=== PATIENT | female | born 1965 | race Caucasian/White ===

== ENCOUNTER → 2025-03-04 | Outpatient (CLI) | payer OTHER, SELFPAY ==
--- NOTE | 2025-03-04 16:15 | XR_ITS ---
Examination: Transvaginal ultrasound of the pelvis, complete Technique: Transvaginal sonographic images pelvis performed using joaquin scale imaging Exam date and time: March 04, 2025 1615 hrs. Indications: Postmenopausal bleeding beginning 9 weeks ago Findings: Uterus 8.0 cm endometrial stripe 1.4 cm Uterine fundal series of fibroid degeneration 18 x 22 mm, 21 x 19 mm Right ovary 2.0 cm arterial flow Left ovary 2.3 cm arterial flow Impression: Uterine areas of fibroid degeneration Abnormal thickening of the endometrial stripe 1.4 cm, differential would include endometrial hyperplasia, malignant neoplasm of the endometrium, recommend MRI pelvis follow-up pre and postcontrast
== END | disposition home or self-care (01) ==
PROVIDERS: PCP Nurse Practitioner Family; Referring Provider Obstetrics & Gynecology; Visit Provider Obstetrics & Gynecology
DX: D25.9 Leiomyoma of uterus, unspecified (principal); R93.89 Abnormal findings on diagnostic imaging of other specified body structures
CPT/HCPCS: 76830

== ENCOUNTER 2025-03-13 13:09 | Outpatient (AMB) | payer OTHER, SELFPAY ==
--- NOTE | 2025-03-13 13:31 | AMB.GYNCLNOT ---
Vital Signs 03/13/25 13:35 Height 1.57 m Height Method Stated Weight 60.951 kg Weight Measurement Method Standing Scale BMI 24.7 BP 124/81 Blood Pressure Source Automatic Cuff Blood Pressure Location Left Upper Arm Position Sitting Respiration 18 Pulse 92 Pulse Source Monitor Temp 97.8 F Temp Source Oral Pulse Oximetry (%) 97 Oxygen Delivery Method Room Air Allergies/Home Meds Allergies & Medications Allergies No Known Allergies Allergy (Verified 03/13/25 13:42) Medication Reconciliation estradiol 10 mcg vaginal insert, in a starter dose pack (Imvexxy Starter Pack) See Rx Instructions vaginal .COMPLEX #18 ea 02/18/25 [Rx Confirmed 03/13/25] Intake Visit Data Collection New Patient or Established: Established Patient (seen at [facility] within 3 years) Reason for Visit:: U/S RESULTS Seen by Clinical Staff ONLY (RN/MA): No Merit System Director Required: No Do You Feel Safe at Home: Yes Authorities Contacted: N/A PCP or OBGYN visit in last 3 months: Yes Hx Now: No Are you currently on any form of Control: No Pain Present Currently: No Pain Scale Used: Riggins-Smith/Numerical Pain scale:: 0 Smoking Status Smoking Status: Never smoker 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 1. Little interest or pleasure in doing things: not at all 2. Feeling down, depressed, or hopeless: not at all Total score: 0 PHQ-9 3. Trouble falling or staying asleep, or sleeping too much: Not at all 4. Feeling tired or having little energy: Not at all 5. Poor appetite or overeating: Not at all 6. Feeling bad about yourself - or that you are a failure or have let yourself or your family down: Not at all 7. Trouble concentrating on things, such as reading the newspaper or watching television: Not at all 8. Moving or speaking so slowly that other people could have noticed? - Or the opposite - being so fidgety or restless that you have been moving around a lot more than usual: not at all 9. Thoughts that you would be better off or of hurting yourself in some way: Not at all Total score: 0 Source: Developed by Drs. Chris Mckeon, Reema Mcguire, Huseyin Chaparro and colleagues, with an educational lisy from [employer] 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 Tobacco History Smoking Status: Never smoker Alcohol History Alcohol Intake: Current Alcohol Intake Frequency: holidays/special occasions only Domestic Abuse History Do You Feel Safe at Home: Yes Past Medical History Past Medical History Have you ever been diagnosed with any of the following: Neurological Problems Seizures: No Migraine: Yes (Takes Maxalt as needed) Cardiology Problems Cardiac Arrhythmia: No Heart Murmur: No Hypercholesterolemia: No Hypertension: No Respiratory Problems Asthma: No Sleep Apnea: No Stomache/Intestinal Problems Gall Bladder Disease: No Diverticulitis: No Diverticulosis: No Irritable Bowel: No Gastroesophageal Reflux Disease: No Genital/Urinary Problems Renal Disease: No Kidney Stones: No Reproductive Problems Breast Cancer: No Endometriosis: No Fibroids: No Genital Herpes: No Gonorrhea: No Pelvic Inflammatory Disease: No Polycystic Ovarian Syndrome: No Previous Pregnancies: Yes ( x 1 in the past, SAB x 1 in the past) Syphilis: No Uterine Prolapse: No Musculoskeletal Problems Arthritis: No Rheumatoid Arthritis: No Osteoporosis: No Head,Eye,Nose,Throat Problems Glaucoma: No Endocrine Problems Hyperthyroidism: No Hypothyroidism: No Systemic Lupus Erythematosus: No Blood Problems Anemia: No Psychologic Problems Anxiety: Yes (Has a prescription for Xanax she takes as needed) Other Problems Hospitalization: Yes (For x 1) Cosmetic Surgery: Yes (Breast implants [address] Sabillon) Anesthesia Reactions: No Chicken Pox: Yes (History of chickenpox\shingles) Surgical History Appendectomy: No Bariatric Surgery: No Breast Surgery: Yes (Breast implants) Cholecystectomy: No History of Present Illness HPI Narrative The patient is a 60-year-old -0-1-1 who is having postmenopausal bleeding. We did order an ultrasound. Patient presents today for follow-up. She was on hormonal pellets in the past. She had a normal Pap and pelvic exam performed 02/19/2024. She denies any pain. She says the bleeding could be light or heavy. Not a lot of cramping. She also is having trouble getting her Imvexxy filled. Results Objective Imaging: The Ultrasound report from 03/04/25 was reviewed today revealing a thickened stripe of 1.4 cm and 2 small fibroids present measuring 2.2 x 1.8 cm and 2.1 x 1.9 cm. Assessment & Plan Diagnosis / Problem List (1) Abnormal vaginal bleeding in postmenopausal patient: Status: Acute Assessment and Plan: Patient has thickened endometrial stripe. Will schedule hysteroscopy dilation curettage to rule out endometrial cancer. (2) Post-menopausal atrophic vaginitis: Status: Acute Assessment and Plan: Patient would like Imvexxy called into a different pharmacy will try [facility] on [address] (3) Thickened endometrium: Status: Acute Assessment and Plan: For hysteroscopy D&C will authorize. Office Procedures OB Clinic LOC & Office Proc's Nursing/Assessment Patient Status: Established Patient OB Clinic Nursing Assessment: Medication Reconciliation, Update PMH in EMR and Vital Signs OB Clinic Coordination of Care: Complex Care and Chronic Disease 1-5, Consent,records obtained, informed consent, Education Simp Pt/Fam, Results/Orders obtained and Staff clarify orders Established Patient Charge Established Patient Point Assignment: 90 Established Patient Point Charge: EP Level 3 (80-115)
[2025-03-13 13:35] VITALS: BP 124/81; PULSE 92; RESP 18; TEMP 36.6; O2SAT 97; BMI 24.7
== END 2025-03-13 14:16 | disposition home or self-care (01) ==
LOC: HODSOBC 13:09
PROVIDERS: PCP Nurse Practitioner Family; Referring Provider Nurse Practitioner Family; Supervising Provider Obstetrics & Gynecology; Visit Provider Obstetrics & Gynecology
DX: N95.0 Postmenopausal bleeding (principal); N95.2 Postmenopausal atrophic vaginitis; R93.89 Abnormal findings on diagnostic imaging of other specified body structures
CPT/HCPCS: 99213; G0463

== ENCOUNTER 2025-07-15 13:27 | Outpatient (AMB) | payer BC, SELFPAY ==
[2025-07-15 13:38] VITALS: BP 130/86; PULSE 80; RESP 16; TEMP 36.7; O2SAT 95; BMI 24.1
--- NOTE | 2025-07-15 13:38 | GYNCLNT_ITS ---
Vital Signs 07/15/25 13:38 Height 1.57 m Height Method Stated Weight 59.477 kg Weight Measurement Method Standing Scale BMI 24.1 BP 130/86 H Blood Pressure Source Automatic Cuff Blood Pressure Location Left Upper Arm Position Sitting Respiration 16 Pulse 80 Pulse Source Monitor Temp 98.1 F Temp Source Oral Pulse Oximetry (%) 95 Oxygen Delivery Method Room Air Allergies/Home Meds Allergies & Medications Allergies No Known Allergies Allergy (Verified 07/15/25 13:39) Medication Reconciliation estradiol 10 mcg vaginal insert, in a starter dose pack (Imvexxy Starter Pack) See Rx Instructions vaginal .COMPLEX #18 ea 02/18/25 [Rx Confirmed 07/15/25] estradiol 10 mcg vaginal insert (Imvexxy Maintenance Pack) See Rx Instructions .Route .COMPLEX #8 inserts 04/27/25 [Rx Confirmed 07/15/25] Intake Visit Data Collection New Patient or Established: Established Patient (seen at [facility] within 3 years) Reason for Visit:: POST MENOPAUSAL BLEEDING FOLLOW UO Seen by Clinical Staff ONLY (RN/MA): No Strickler Attendant Required: No Do You Feel Safe at Home: Yes Authorities Contacted: N/A PCP or OBGYN visit in last 3 months: Yes Hx Now: No Are you currently on any form of Control: No Pain Present Currently: No Pain Scale Used: Riggins-Smith/Numerical Pain scale:: 0 Smoking Status Smoking Status: Never smoker Anesthesiology Medical Doctor history Anesthesiology Medical Doctor History Menopausal: Yes If menopausal, at what age did it occur: 57 Currently sexually 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 1. Little interest or pleasure in doing things: not at all 2. Feeling down, depressed, or hopeless: not at all Total score: 0 PHQ-9 3. Trouble falling or staying asleep, or sleeping too much: Not at all 4. Feeling tired or having little energy: Not at all 5. Poor appetite or overeating: Not at all 6. Feeling bad about yourself - or that you are a failure or have let yourself or your family down: Not at all 7. Trouble concentrating on things, such as reading the newspaper or watching television: Not at all 8. Moving or speaking so slowly that other people could have noticed? - Or the opposite - being so fidgety or restless that you have been moving around a lot more than usual: not at all 9. Thoughts that you would be better off or of hurting yourself in some way: Not at all Total score: 0 Source: Developed by Drs. Chris Mckeon, Reema Mcguire, Huseyin Chaparro and colleagues, with an educational lisy from [employer]. 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 Tobacco History Smoking Status: Never smoker Second Hand Smoke Exposure: No Alcohol History Alcohol Intake: Current Alcohol Intake Frequency: holidays/special occasions only Domestic Abuse History Do You Feel Safe at Home: Yes History of Present Illness HPI Narrative The patient is a 60-year-old -0-1-1 who presents for follow-up. She was on hormone pellets and discontinued these about 6 to 7 months ago. She has been having postmenopausal bleeding. An ultrasound revealed a stripe of 1.4 cm and 2 small fibroids each were measuring about 2 x 2 cm. The plan was for a hysteroscopy dilation curettage and may be a MyoSure. Patient is amendable to trying an IUD in the office if she continues to have postmenopausal bleeding. Her Pap was reviewed and normal. Patient states she is going to [place] August 02 to see her son otherwise she is available. She recently retired. We did discuss the procedure and that she would probably be asleep about 20 minutes. I verbally consented her for the case including the risk of bleeding, infection, blood transfusion and damage to bowel bladder blood vessels and other organs and further surgery should uterine perforation or other complications occur. Patient was asking about an ablation and states one of her friends had an ablation in her mid 50s. I told the patient as far as I know this is not indicated for postmenopausal patients. If she continues to bleed I would recommend a Mirena IUD which can be placed in the office. If that is not possible, I would recommend a hysterectomy. Review of Systems Review of Systems Narrative Review of Systems: Patient reports passing stringy pieces of tissue vaginally that look like liver Exam Narrative Physical exam: The remainder physical exam deferred as this is a counseling visit. General Limitations: no limitations General Appearance: alert, in no apparent distress, cooperative, healthy appearing and well groomed Office Procedures OB Clinic LOC & Office Proc's Nursing/Assessment Patient Status: Established Patient OB Clinic Nursing Assessment: Medication Reconciliation, Update PMH in EMR and Vital Signs OB Clinic Coordination of Care: Complex Care and Chronic Disease 1-5, Consent,records obtained, informed consent, Education Simp Pt/Fam, Lab and I maging orders, Results/Orders obtained and Staff clarify orders Established Patient Charge Established Patient Point Assignment: 105 Established Patient Point Charge: EP Level 3 (80-115) Assessment & Plan Diagnosis / Problem List (1) Thickened endometrium: Status: Acute Plan: Patient having postmenopausal bleeding with thickened endometrium. Ultrasound reveals small fibroids. The plan is for a hysteroscopy, dilation, curettage, possible MyoSure in the OR. Patient has been verbally consented. Will authorize insurance and schedule this case. (2) Abnormal vaginal bleeding in postmenopausal patient: Status: Acute (3) Postmenopausal postcoital bleeding: Status: Acute (4) Intramural uterine fibroid: Status: Acute
== END 2025-07-15 14:02 | disposition home or self-care (01) ==
LOC: HODSOBC 13:27
PROVIDERS: Supervising Provider Obstetrics & Gynecology; Visit Provider Obstetrics & Gynecology
DX: D25.1 Intramural leiomyoma of uterus (principal); N95.0 Postmenopausal bleeding; R93.89 Abnormal findings on diagnostic imaging of other specified body structures
CPT/HCPCS: 99213; G0463

== ENCOUNTER → 2025-09-09 | Outpatient (CLI) | payer BC, SELFPAY ==
[2025-09-09 10:14] LABS: Collection Type, Urine Clean Catch
[2025-09-09 10:55] LABS: Basophils # (Auto) 0.0 Thou/mm3 (0.0-0.2); Basophils % (Auto) 1 % (0-2.5); Eosinophils # (Auto) 0.1 Thou/mm3 (0.0-0.5); Eosinophils % (Auto) 3 % (0-10); Hematocrit 43.4 % (36.0-46.0); Hemoglobin 14.2 g/dL (12.0-16.0); Immature Granulocytes Auto 0.01 Thou/mm3 (0.00-0.00); Lymphocytes # (Auto) 1.7 Thou/mm3 (1.0-4.8); Lymphocytes % (Auto) 40 % (10-50); Mean Corpuscular HGB Conc 32.7 g/dl (31.0-37.0); Mean Corpuscular Hemoglobin 31.1 pg (25.0-35.0); Mean Corpuscular Volume 95 fL (80-100); Monocytes # (Auto) 0.4 Thou/mm3 (0.0-0.8); Monocytes % (Auto) 10 % (0-12); Neutrophils # (Auto) 2.0 Thou/mm3 (1.8-7.7); Neutrophils % (Auto) 46 % (37-80); Nucleated Red Blood Cell # 0.00 Thou/mm3 (0.00-0.00); Nucleated Red Blood Cell % 0 /100 WBC (0); Platelet Count 284 Thou/mm3 (140-440); RDW Standard Deviation 48.8 fL (36.4-46.3); Red Blood Count 4.57 Miln/mm3 (4.00-5.20); White Blood Count 4.3 Thou/mm3 (3.6-11.0)
[2025-09-09 11:03] LABS: Alanine Aminotransferase 15 U/L (10-49); Albumin, Serum 4.7 gm/dL (3.5-5.0); Albumin/Globulin Ratio 1.8 (1.2-2.2); Alkaline Phosphatase 57 U/L (46-116); Anion Gap 11 (7-16); Aspartate Amino Transferase 25 U/L (0-34); BUN/Creatinine Ratio 20 Ratio (12-20); Bilirubin,Total 0.4 mg/dL (0.3-1.2); Blood Urea Nitrogen 16 mg/dL (9-23); Calcium 10.5 mg/dL (8.3-10.6); Calcium (Corrected) 10.5 mg/dL (8.5-10.1); Carbon Dioxide 28.3 mMol/L (20.0-31.0); Cardiac Risk Estimate 2.1 RATIO (3.7-5.6); Chloride 104 mMol/L (98-107); Cholesterol 237 mg/dL (132-200); Creatinine (Component) 0.8 mg/dL (0.6-1.3); Globulin 2.6 gm/dL (2.3-3.5); Glucose 87 mg/dL (74-106); HDL Cholesterol 113 mg/dL (40-60); LDL Cholesterol,Calculated 113 mg/dL (0-130); Osmolality,Calculated 285 (275-295); Potassium 4.3 mMol/L (3.4-5.1); Sodium 143 mMol/L (136-145); Thyroid Stimulating Hormone 1.82 uIU/mL (0.55-4.78); Total Protein 7.3 gm/dL (5.7-8.2); Triglycerides 55 mg/dL (30-150); eGFR > 60 See Note
[2025-09-09 11:04] LABS: Vitamin D 25 Hydroxy Total 39.1 ng/mL (7.3-40.2)
[2025-09-09 11:14] LABS: Bilirubin,Urine Negative (Negative); Blood,Urine Negative (Negative); Clarity,Urine Clear (Clear/Hazy); Color,Urine Lt-Yellow (Lt Yel-Yel); Culture Indicated,Urine Not Indicated; Glucose, Urine Negative (Negative); Ketones,Urine Trace (Negative); Leukocyte Esterase,Urine Negative (Negative); Nitrite,Urine Negative (Negative); PH,Urine 5.5 (5.0-7.0); Protein,Urine Negative (Neg - Trace); RBC,Urine 4 /hpf (0-3); Specific Gravity,Urine 1.022 (1.001-1.035); Squamous Epithelial Cell,Urine < 1 /hpf (0-5); Urobilinogen,Urine Negative mg/dL (0.0-1.0); WBC,Urine 1 /hpf (0-5)
[2025-09-14 06:39] LABS: Thyroid Peroxidase Antibodies* 1 IU/mL (<9)
== END | disposition home or self-care (01) ==
PROVIDERS: PCP Nurse Practitioner Family; Referring Provider Nurse Practitioner Family; Visit Provider Nurse Practitioner Family
DX: Z00.00 Encounter for general adult medical examination without abnormal findings (principal); E55.9 Vitamin D deficiency, unspecified; N39.0 Urinary tract infection, site not specified; E03.9 Hypothyroidism, unspecified; R10.9 Unspecified abdominal pain; Z79.899 Other long term (current) drug therapy; Z13.29 Encounter for screening for other suspected endocrine disorder; Z13.1 Encounter for screening for diabetes mellitus; Z13.0 Encounter for screening for diseases of the blood and blood-forming organs and certain disorders involving the immune mechanism
CPT/HCPCS: 36415; 80053; 80061; 81001; 82306; 84443; 85025; 86376

== ENCOUNTER → 2025-09-14 | Outpatient (CLI) | payer BC, SELFPAY ==
[2025-09-16 06:51] LABS: Fecal Globin Result NOT DETECTED (NOT DETECTED)
== END | disposition home or self-care (01) ==
LOC: SLDO 10:54
PROVIDERS: Referring Provider Nurse Practitioner Family; Visit Provider Nurse Practitioner Family
DX: Z00.00 Encounter for general adult medical examination without abnormal findings (principal); E55.9 Vitamin D deficiency, unspecified; E03.9 Hypothyroidism, unspecified; R10.9 Unspecified abdominal pain; Z13.29 Encounter for screening for other suspected endocrine disorder; Z13.1 Encounter for screening for diabetes mellitus; Z13.0 Encounter for screening for diseases of the blood and blood-forming organs and certain disorders involving the immune mechanism
CPT/HCPCS: 82274; G0328

== ENCOUNTER 2025-09-28 08:52 | Outpatient (AMB) | payer BC, SELFPAY ==
[2025-09-28 09:07] VITALS: BP 153/84; PULSE 81; RESP 18; TEMP 36.2; O2SAT 98; BMI 24.5
--- NOTE | 2025-09-28 09:07 | AMB.GYNCLNOT ---
Vital Signs 09/28/25 09:07 Height 1.57 m Height Method Stated Weight 60.328 kg Weight Measurement Method Standing Scale BMI 24.5 BP 153/84 H Blood Pressure Source Automatic Cuff Blood Pressure Location Left Upper Arm Position Sitting Respiration 18 Pulse 81 Pulse Source Monitor Temp 97.2 F Temp Source Oral Pulse Oximetry (%) 98 Oxygen Delivery Method Room Air Allergies/Home Meds Allergies & Medications Allergies No Known Allergies Allergy (Verified 09/28/25 09:08) Medication Reconciliation estradiol 10 mcg vaginal insert, in a starter dose pack (Imvexxy Starter Pack) See Rx Instructions vaginal .COMPLEX #18 ea 02/18/25 [Rx Confirmed 09/28/25] estradiol 10 mcg vaginal insert (Imvexxy Maintenance Pack) See Rx Instructions .Route .COMPLEX #8 inserts 04/27/25 [Rx Confirmed 09/28/25] Intake Visit Data Collection New Patient or Established: Established Patient (seen at [facility] within 3 years) Reason for Visit:: PRE-OP Seen by Clinical Staff ONLY (RN/MA): No Skewer Up Required: No Do You Feel Safe at Home: Yes Authorities Contacted: N/A PCP or OBGYN visit in last 3 months: Yes Date of Last PCP or OBGYN visit: 07/15/25 Hx Now: Yes Are you currently on any form of Control: No Pain Present Currently: No Pain Scale Used: Riggins-Smith/Numerical Pain scale:: 0 Smoking Status Smoking Status: Never smoker Immunizations Flu Vaccine in the Last 12 Months: No Flu Vaccine Exclusion Criteria: No Exclusion Criteria 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 1. Little interest or pleasure in doing things: not at all 2. Feeling down, depressed, or hopeless: not at all Total score: 0 PHQ-9 3. Trouble falling or staying asleep, or sleeping too much: Not at all 4. Feeling tired or having little energy: Not at all 5. Poor appetite or overeating: Not at all 6. Feeling bad about yourself - or that you are a failure or have let yourself or your family down: Not at all 7. Trouble concentrating on things, such as reading the newspaper or watching television: Not at all 8. Moving or speaking so slowly that other people could have noticed? - Or the opposite - being so fidgety or restless that you have been moving around a lot more than usual: not at all 9. Thoughts that you would be better off or of hurting yourself in some way: Not at all Total score: 0 If you checked off any problems, how difficult have these problems made it for you to do your work, take care of things at home, or get along with other people?: not difficult at all Source: Developed by Drs. Chris Mckeon, Reema Mcguire, Huseyin Chaparro and colleagues, with an educational lisy from [employer]. 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 Tobacco History Smoking Status: Never smoker Second Hand Smoke Exposure: No Alcohol History Alcohol Intake: Current Alcohol Intake Frequency: holidays/special occasions only Domestic Abuse History Do You Feel Safe at Home: Yes History of Present Illness HPI Narrative The patient is a 60-year-old -0-1-1 presents for preop visit. She has a thickened stripe of 1.4 cm with 2 fibroids present. She is to undergo a hysteroscopy, dilation, curettage for postmenopausal bleeding. Patient was on pellets for hormone replacement therapy for 2 years 2 to 3 years. She was seeing Dr. Bell. She states that she was on estrogen and testosterone pellets and then withdrawing monthly on progesterone. She discontinued this about 8 months ago. Her main complaint is postmenopausal bleeding which she describes as dark and constant and brain fog when she gets through the surgery and has pathology back, she might want to discuss other HRT options. Of note she is nervous today and crying afraid she has uterine cancer. I tried to reassure her she most likely does not have uterine cancer but we do have to rule this out and the only good way to do it with a thickened stripe and fibroids is to perform a hysteroscopy dilation curettage in the operating room. Review of Systems Review of Systems Narrative Review of Systems: Patient reports dark brownish bleeding no fevers chills no pain. No foul discharge. Exam General Limitations: no limitations General Appearance: alert, in no apparent distress, cooperative, healthy appearing, well groomed and anxious Chest Chest inspection: Present normal inspection and symmetric chest wall rise Resp Respiratory exam: Present normal lung sounds bilaterally Card Cardiovascular exam: Present regular rate, normal rhythm and normal heart sounds Abdominal Abdominal exam: Present soft and normal bowel sounds Psych Psychiatric exam: Present normal affect and normal mood Skin Skin exam: Present warm, dry, intact and normal color Results Objective Imaging: Ultrasound from 425 reveals a thickened stripe of 1.4 cm. 2 small fibroids, one 2 x 2 cm and another 1.5 x 1 cm Office Procedures OBC Clinic LOC & Office Proc's Nursing/Assessment Patient Status: Established Patient OB Clinic Nursing Assessment: Medication Reconciliation, Update PMH in EMR and Vital Signs OB Clinic Coordination of Care: Consent,records obtained, informed consent, Education Simp Pt/Fam, Lab and Imaging orders, Results/Orders obtained and Staff clarify orders Special Needs: Heart tones Established Patient Charge Established Patient Point Assignment: 110 Established Patient Point Charge: EP Level 3 (80-115) Assessment & Plan Diagnosis / Problem List (1) Abnormal vaginal bleeding in postmenopausal patient: Status: Acute Plan: Patient is consented for a hysteroscopy, dilation, curettage for a thickened stripe and postmenopausal bleeding. Patient is consented for the procedure. The risks are discussed including the risk of bleeding, infection, blood transfusion, damage to bowel bladder blood vessels other organs and prolonged hospital stay and further surgery should any above occur. All questions were answered all consents were signed. (2) Thickened endometrium: Status: Acute Plan: For hysteroscopy, dilation, curettage for postmenopausal bleeding. (3) Intramural uterine fibroid: Status: Acute
== END 2025-09-28 10:35 | disposition home or self-care (01) ==
LOC: HODSOBC 08:52
PROVIDERS: PCP Nurse Practitioner Family; Referring Provider Nurse Practitioner Family; Supervising Provider Obstetrics & Gynecology; Visit Provider Obstetrics & Gynecology
DX: D25.1 Intramural leiomyoma of uterus (principal); N95.0 Postmenopausal bleeding; R93.89 Abnormal findings on diagnostic imaging of other specified body structures; Z79.890 Hormone replacement therapy
CPT/HCPCS: 99213; G0463

== ENCOUNTER 2025-10-21 13:22 | Outpatient (AMB) | payer BC, SELFPAY ==
[2025-10-21 13:44] VITALS: BP 129/79; PULSE 82; RESP 18; TEMP 36.3; O2SAT 96; BMI 24.8
--- NOTE | 2025-10-21 13:44 | GYNCLNT_ITS ---
Vital Signs 10/21/25 13:44 Height 1.55 m Height Method Stated Weight 59.647 kg Weight Measurement Method Standing Scale BMI 24.8 BP 129/79 Blood Pressure Source Automatic Cuff Blood Pressure Location Right Upper Arm Position Sitting Respiration 18 Pulse 82 Pulse Source Monitor Temp 97.4 F Temp Source Temporal Artery Scan Pulse Oximetry (%) 96 Oxygen Delivery Method Room Air Allergies/Home Meds Allergies & Medications Allergies No Known Allergies Allergy (Verified 10/21/25 13:45) Medication Reconciliation alprazolam 0.5 mg tablet 0.5 mg PO HS PRN anxiety 09/29/25 [History Confirmed 10/21/25] rizatriptan 10 mg disintegrating tablet (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) 10 mg PO Q2H PRN migraine headache 09/29/25 [History Confirmed 10/21/25] Intake Visit Data Collection New Patient or Established: Established Patient (seen at [facility] within 3 years) Reason for Visit:: POST OP Seen by Clinical Staff ONLY (RN/MA): No Decorative Cutting Machine Tender Required: No Do You Feel Safe at Home: Yes Authorities Contacted: N/A PCP or OBGYN visit in last 3 months: Yes Date of Last PCP or OBGYN visit: 09/28/25 Hx Now: No Are you currently on any form of Control: No Pain Present Currently: No Pain Scale Used: Riggins-Smith/Numerical Pain scale:: 0 Smoking Status Smoking Status: Never smoker Immunizations Flu Vaccine in the Last 12 Months: No Flu Vaccine Exclusion Criteria: No Exclusion Criteria 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 These were discontinued approximately November 2024. 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: Past Medical History Past Medical History: Yes Hx Neurological Disorders and Yes Hx Blood Disorders Additional Operations/Hospitalizations (year & reason): History of x 1 Hysteroscopy dilation curettage 09/30/2025 D&C for miscarriage x 1 in the past Breast implants placed approximately 23 years ago Other Relevant History: Patient denies any chronic medical problems including asthma diabetes or hypertension She has anxiety and takes occasional Xanax She was on HRT pellets until approximately November 2024 Seasonal allergies Occasional migraines Questionnaires Covid-19 Vaccine Questionnaire Has patient been vacinated for Covid-19 Have you been vacinated for Covid-19: No PHQ-9 PHQ-2 Over the last 2 weeks, how often have you been bothered by any of the following problems? 1. Little interest or pleasure in doing things: not at all 2. Feeling down, depressed, or hopeless: not at all Total score: 0 PHQ-9 3. Trouble falling or staying asleep, or sleeping too much: Not at all 4. Feeling tired or having little energy: Not at all 5. Poor appetite or overeating: Not at all 6. Feeling bad about yourself - or that you are a failure or have let yourself or your family down: Not at all 7. Trouble concentrating on things, such as reading the newspaper or watching television: Not at all 8. Moving or speaking so slowly that other people could have noticed? - Or the opposite - being so fidgety or restless that you have been moving around a lot more than usual: not at all 9. Thoughts that you would be better off or of hurting yourself in some way: Not at all Total score: 0 If you checked off any problems, how difficult have these problems made it for you to do your work, take care of things at home, or get along with other people?: not difficult at all Source: Developed by Drs. Chris Mckeon, Reema Mcguire, Huseyin Chaparro and colleagues, with an educational lisy from [employer]. 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 Tobacco History Smoking Status: Never smoker Second Hand Smoke Exposure: No Alcohol History Alcohol Intake: Current Alcohol Intake Frequency: holidays/special occasions only Domestic Abuse History Do You Feel Safe at Home: Yes History of Present Illness HPI Narrative The patient is a 60-year-old -0-1-1 status post 26 years ago and a D&C in the past for miscarriage. She went through menopause around age 52. She was on HRT pellets in the postmenopause and discontinued these approximately 11 months ago. Patient had been experiencing postmenopausal bleeding. Ultrasound performed in February 2025 revealed a thickened stripe of 1.4 cm and a suggestion of 2 small fibroids in her uterus 1 measuring approximately 1-1/2 x 1-1/2 cm the other measuring about 2.1 cm. Patient was unable to be biopsied in the office with an endometrial biopsy was consented for scheduled hysteroscopy D&C possible MyoSure for postmenopausal bleeding with thickened thickened stripe. She underwent a hysteroscopy dilation and curettage 09/30/2025. Her surgery was uncomplicated and she went home the same day. Multiple endometrial polyps were found but no discrete intracavitary fibroids were seen. She had some adhesions in her cavity suggestive of possible Asherman syndrome likely from her or her D&C. Review of Systems Review of Systems Narrative Review of Systems: Patient denies heavy vaginal bleeding. Her postoperative course has been uncomplicated. She denies fevers chills or abnormal discharge. Exam General Limitations: no limitations General Appearance: alert, in no apparent distress, cooperative, healthy appearing and well groomed Chest Chest inspection: Present normal inspection and symmetric chest wall rise Card Cardiovascular exam: Present regular rate, normal rhythm and normal heart sounds Abdominal Abdominal exam: Present soft and normal bowel sounds Psych Psychiatric exam: Present normal affect and normal mood Skin Skin exam: Present warm, dry, intact and normal color Office Procedures [facility] LOC & Office Proc's Nursing/Assessment Patient Status: Established Patient OB Clinic Nursing Assessment: Medication Reconciliation, Update PMH in EMR and Vital Signs OB Clinic Coordination of Care: Complex Care and Chronic Disease 1-5, Education Complex Pt/Fam, Consent,records obtained, informed consent, Lab and Imaging orders, Results/Orders obtained and Staff clarify orders Established Patient Charge Established Patient Point Assignment: 110 Established Patient Point Charge: EP Level 3 (80-115) Assessment & Plan Diagnosis / Problem List (1) Thickened endometrium: Status: Acute Assessment and Plan: Patient is status post hysteroscopy dilation curettage polypectomy 09/30/2025. Her pathology was reviewed with her and is benign. She was given a copy of it. She was shown pictures of her endometrial cavity. She had some adhesions present and signs of polyps but no discrete fibroids seen. The patient will follow-up with her nurse practitioner just to discuss HRT. I would suggest either an estrogen patch or a Prempro type patch. I explained to the patient she will need estrogen and progesterone. I discouraged the use of pellets and told the patient these are not absorbed consistently. The patient will follow- up with her primary care provider to discuss HRT. She will follow-up yearly for mammograms, Pap smears and pelvic exams. If she continues to have any type of heavy vaginal bleeding ,she must follow-up and might have to proceed with a hysterectomy at that point. All questions were answered. (2) Abnormal vaginal bleeding in postmenopausal patient: Status: Acute
== END 2025-10-21 14:16 | disposition home or self-care (01) ==
LOC: HODSOBC 13:22
PROVIDERS: PCP Nurse Practitioner Family; Referring Provider Nurse Practitioner Family; Supervising Provider Obstetrics & Gynecology; Visit Provider Obstetrics & Gynecology
DX: R93.89 Abnormal findings on diagnostic imaging of other specified body structures (principal); N95.0 Postmenopausal bleeding; Z98.890 Other specified postprocedural states
CPT/HCPCS: 99213; G0463